=== PATIENT | female | born 1995 | race Caucasian/White ===

== ENCOUNTER 2020-10-05 22:02 | Emergency (ER) | payer OTHER ==
[~2020-10-05 22:02] MED LIST: BACLOFEN 10MG T10 MG PO; CEPHALEXIN500 MG PO; IBUPROFEN800 M1 PO; MACROBID100 MG PO; MEDROL 4MG DOSEP4 MG PO; NYSTATIN 30GM C30 GM TOP; TALTZ AUTO80 MG/1 ML SC
[2020-10-05 22:23] LABS: BILIRUBIN NEGATIVE (NEGATIVE); BLOOD 2+ Ery/uL (NEGATIVE); CLARITY CLEAR (CLEAR); COLOR YELLOW (YELLOW); GLUCOSE (U) NORMAL (NORMAL); LEUKOCYTES NEGATIVE Leu/uL (NEGATIVE); NITRITE NEGATIVE (NEGATIVE); PROTEIN NEGATIVE (NEGATIVE); UROBILINOGEN 0.2 mg/dL (0.2-1.0)
[2020-10-05 22:30] LABS: AMORPHOUS URATES CRYSTALS MODERATE; BACTERIA 1+; URINARY WBC RARE
[2020-10-05 22:36] LABS: BASOPHIL 0.4 % (0-2); HCT 38.4 % (37.0-47.0); HGB 12.3 g/dl (12.5-16.0); LYMPHOCYTE 31.7 % (15-48); MCH 27.7 pg (25.0-31.0); MCV 86.5 fL (78.0-100.0); MONOCYTE 4.9 % (0-12); NEUTROPHIL 61.6 % (41-80); NRBC 0; PLT 268 K/uL (150-400); RBC 4.44 M/uL (4.20-5.40); WBC 11.3 K/uL (4.0-10.5)
[2020-10-05 22:54] LABS: ALBUMIN 3.2 g/dL (3.4-5.0); BILIRUBIN - TOTAL 0.2 mg/dL (0.2-1.0); CREATININE 0.6 mg/dL (0.51-0.95); GLOBULIN (CALCULATION) 3.3 g/dL; POTASSIUM 4.1 mmol/L (3.5-5.1); TOTAL PROTEIN 6.5 g/dL (6.4-8.2)
== END 2020-10-06 03:31 | disposition home or self-care (01) ==
LOC: FER 22:02
PROVIDERS: Student in an Organized Health Care Education/Training Program
DX: O26.851 Spotting complicating pregnancy, first trimester (principal); O99.891 Other specified diseases and conditions complicating pregnancy; R10.9 Unspecified abdominal pain; Z87.42 Personal history of other diseases of the female genital tract; Z3A.00 Weeks of gestation of pregnancy not specified
CPT/HCPCS: 36415; 80053; 81001; 84702; 85025; 99284

== ENCOUNTER 2021-07-08 17:03 | Inpatient (IN) | payer OTHER ==
[2021-07-08 18:18] LABS: HCT 37.2 % (37.0-47.0); HGB 12.2 g/dl (12.5-16.0); MCH 27.2 pg (25.0-31.0); MCHC 32.8 g/dL (32.0-36.0); MPV 11.1 fL (6.0-9.5); RBC 4.48 M/uL (4.20-5.40); RDW 17.2 % (11.5-14.0); WBC 15.4 K/uL (4.0-10.5)
[2021-07-08 19:05] LABS: ALBUMIN 2.5 g/dL (3.4-5.0); BILIRUBIN - TOTAL 0.2 mg/dL (0.2-1.0); BUN/CREAT RATIO (CALC) 18.4 RATIO; CREATININE 0.49 mg/dL (0.51-0.95); GLOBULIN (CALCULATION) 3.5 g/dL; POTASSIUM 3.9 mmol/L (3.5-5.1)
[2021-07-08 19:43] LABS: AMPHETAMINES NEGATIVE (NEGATIVE); BARBITURATES NEGATIVE (NEGATIVE); ECSTASY (MDMA) NEGATIVE (NEGATIVE); MARIJUANA (THC) NEGATIVE (NEGATIVE); METHADONE NEGATIVE (NEGATIVE); OPIATES NEGATIVE (NEGATIVE); OXYCODONE NEGATIVE (NEGATIVE)
[2021-07-08 19:48] LABS: BILIRUBIN NEGATIVE (NEGATIVE); BLOOD TRACE-INTACT Ery/uL (NEGATIVE); CLARITY CLEAR (CLEAR); COLOR YELLOW (YELLOW); GLUCOSE (U) NORMAL (NORMAL); LEUKOCYTES 1+ Leu/uL (NEGATIVE); NITRITE NEGATIVE (NEGATIVE); PROTEIN NEGATIVE (NEGATIVE); SPECIFIC GRAVITY 1.025 (1.001-1.030); UROBILINOGEN 0.2 mg/dL (0.2-1.0); pH 6.5 (5.0-9.0)
[2021-07-08 19:51] LABS: BACTERIA 1+
[2021-07-08 19:59] LABS: PROTEIN:CREATININE 0.27 RATIO; URINE CREATININE 69.79 mg/dL (29.00-226.00); URINE TOTAL PROTEIN-RANDOM 19.4 mg/dL (<11.9)
[2021-07-11 04:57] LABS: HCT 31.1 % (37.0-47.0); HGB 9.7 g/dl (12.5-16.0); MCH 27.2 pg (25.0-31.0); MCHC 31.2 g/dL (32.0-36.0); MPV 11.7 fL (6.0-9.5); RBC 3.57 M/uL (4.20-5.40); RDW 18.2 % (11.5-14.0); WBC 14.5 K/uL (4.0-10.5)
[2021-07-11 04:58] LABS: MCV 87.1 fL (78.0-100.0)
== END 2021-07-12 13:51 | disposition home or self-care (01) | DRG 787 ==
LOC: FOD 17:03 → FOB 17:04 → FOD 07-09 07:50 → FOB 07-09 08:00
PROVIDERS: ADMIT Obstetrics & Gynecology
PROC: 10D00Z1 Extraction of Products of Conception, Low, Open Approach (ICD-10-PCS; principal; 2021-07-09)
PROC: 0U7C7ZZ Dilation of Cervix, Via Natural or Artificial Opening (ICD-10-PCS; 2021-07-09)
PROC: 3E0P7VZ Introduction of Hormone into Female Reproductive, Via Natural or Artificial Opening (ICD-10-PCS; 2021-07-09)
DX: O76 Abnormality in fetal heart rate and rhythm complicating labor and delivery (principal); D62 Acute posthemorrhagic anemia; O99.214 Obesity complicating childbirth; Z37.0 Single live birth; O14.14 Severe pre-eclampsia complicating childbirth; Z20.822 Contact with and (suspected) exposure to COVID-19; O99.02 Anemia complicating childbirth; Z91.14 Patient's other noncompliance with medication regimen; Z3A.38 38 weeks gestation of pregnancy; O99.824 Streptococcus B carrier state complicating childbirth; R00.0 Tachycardia, unspecified
CPT/HCPCS: 36415; 80053; 80305; 81001; 82570; 83615; 83735; 84156; 84550; 86850; 86900; 86901; 93005; J0456; J0595; J0610; J0690; J1170; J1885; J2274; J2300; J2370; J2405; J2540; J2916; J3010; J3475; J3490; J7050; J7120; U0002

== ENCOUNTER 2021-07-15 14:28 | Emergency (ER) | payer OTHER ==
[2021-07-15 16:08] LABS: BASOPHIL 0.5 % (0-2); EOSINOPHIL 1.8 % (0-5); HCT 37.1 % (37.0-47.0); LYMPHOCYTE 25.4 % (15-48); MCH 27.6 pg (25.0-31.0); MCHC 32.3 g/dL (32.0-36.0); MCV 85.3 fL (78.0-100.0); MONOCYTE 4.6 % (0-12); MPV 10.2 fL (6.0-9.5); NRBC 0; PLT 334 K/uL (150-400); RBC 4.35 M/uL (4.20-5.40); WBC 11.7 K/uL (4.0-10.5)
[2021-07-15 16:22] LABS: URINE CREATININE 26.39 mg/dL (29.00-226.00); URINE TOTAL PROTEIN-RANDOM 24.6 mg/dL (<11.9)
[2021-07-15 16:23] LABS: AMPHETAMINES NEGATIVE (NEGATIVE); BARBITURATES NEGATIVE (NEGATIVE); ECSTASY (MDMA) NEGATIVE (NEGATIVE); MARIJUANA (THC) NEGATIVE (NEGATIVE); METHADONE NEGATIVE (NEGATIVE); OPIATES NEGATIVE (NEGATIVE); OXYCODONE POSITIVE (NEGATIVE)
[2021-07-15 16:31] LABS: ALBUMIN 2.9 g/dL (3.4-5.0); BILIRUBIN - TOTAL 0.2 mg/dL (0.2-1.0); BUN/CREAT RATIO (CALC) 16.9 RATIO; CREATININE 0.59 mg/dL (0.51-0.95); GLOBULIN (CALCULATION) 4.4 g/dL; POTASSIUM 3.5 mmol/L (3.5-5.1); TOTAL PROTEIN 7.3 g/dL (6.4-8.2); URIC ACID 5.6 mg/dL (2.6-6.2)
[2021-07-15] MEDS ORDERED: TRANDATE100 MG PO (18:09)
== END 2021-07-15 18:26 | disposition home or self-care (01) ==
LOC: FER 14:28
PROVIDERS: Emergency Medicine
DX: O13.5 Gestational [pregnancy-induced] hypertension without significant proteinuria, complicating the puerperium (principal); Z20.822 Contact with and (suspected) exposure to COVID-19
CPT/HCPCS: 36415; 80053; 80305; 82570; 83615; 84156; 84550; 85025; 86850; 86900; 86901; J1170; J2765; J3490; U0002

== ENCOUNTER 2021-10-17 15:03 | Emergency (ER) | payer OTHER ==
[~2021-10-17 15:03] MED LIST changes: +TRANDATE100 MG PO
[2021-10-17 15:45] LABS: BILIRUBIN NEGATIVE (NEGATIVE); BLOOD NEGATIVE Ery/uL (NEGATIVE); CLARITY CLEAR (CLEAR); COLOR YELLOW (YELLOW); GLUCOSE (U) NORMAL (NORMAL); LEUKOCYTES NEGATIVE Leu/uL (NEGATIVE); NITRITE NEGATIVE (NEGATIVE); PROTEIN 1+ mg/dL (NEGATIVE); SPECIFIC GRAVITY >=1.030 (1.001-1.030); UROBILINOGEN 0.2 mg/dL (0.2-1.0)
[2021-10-17 15:53] LABS: BACTERIA TRACE
[2021-10-17] MEDS ORDERED: ONDANSETRON ODT4 MG PO (17:42)
== END 2021-10-17 17:48 | disposition home or self-care (01) ==
LOC: FER 15:03
PROVIDERS: Physician Assistant
DX: G43.909 Migraine, unspecified, not intractable, without status migrainosus (principal); I10 Essential (primary) hypertension; F17.290 Nicotine dependence, other tobacco product, uncomplicated
CPT/HCPCS: 81001; 99283; J1885